=== PATIENT | female | born 1990 | race Caucasian/White ===

== ENCOUNTER 2020-12-20 14:03 | Emergency (ER) | payer BC ==
[~2020-12-20] VITALS: Ht 165.1 cm; Wt 52.2 kg
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
--- NOTE | 2020-12-20 14:58 | NUR ---
THE PATIENT SEEN BY DR TOMPKINS.
--- NOTE | 2020-12-20 15:25 | NUR ---
URINE SENT TO LAB
[2020-12-20 15:29] LABS: BASOPHILS % (AUTO) 0.5 % (0.0-2.0); EOSINOPHILS % (AUTO) 0.8 % (0.0-6.0); HEMATOCRIT 35 % (33-45); HEMOGLOBIN 11.6 g/dL (11.5-14.8); LYMPHOCYTES # (AUTO) 1.3 /CMM (0.8-4.8); LYMPHOCYTES % (AUTO) 25.1 % (20.0-44.0); MEAN CORPUSCULAR HGB CONC 33 g/dl (31.0-36.0); MEAN CORPUSCULAR VOLUME 91 fL (82-100); MONOCYTES # (AUTO) 0.4 /CMM (0.1-1.30); MONOCYTES % (AUTO) 6.8 % (2.0-12.0); NEUTROPHILS # (AUTO) 3.5 /CMM (1.8-8.9); NEUTROPHILS % (AUTO) 66.8 % (43.0-81.0); PLATELET COUNT (AUTO) 330 /CMM (150-450); RED BLOOD CELL COUNT(AUTO) 3.84 MIL/uL (4.0-5.2); WHITE BLOOD COUNT (AUTO) 5.2 K/uL (4.3-11.0)
[2020-12-20 15:32] LABS: BILIRUBIN,URINE NEGATIVE (NEGATIVE); COLOR,URINE YELLOW (YELLOW); LEUKOCYTE ESTERASE ,URINE NEGATIVE (NEGATIVE); NITRITE, URINE NEGATIVE (NEGATIVE); PH,URINE 6.5 (5.0-8.0); PROTEIN,URINE NEGATIVE (NEGATIVE); UGLUCOSE NEGATIVE (NEGATIVE); UROBILINOGEN,URINE 0.2 EU/dL (0.2)
[2020-12-20 15:44] LABS: ALBUMIN 4.2 g/dL (3.4-5.0); BILIRUBIN,DIRECT 0.2 mg/dL (0.0-0.2); CALCIUM, SERUM 8.8 mg/dL (8.5-10.1); CREATININE 0.7 mg/dL (0.6-1.3); POTASSIUM 3.8 mmol/L (3.5-5.1); TOTAL PROTEIN, SERUM 7.7 g/dL (6.4-8.2)
[2020-12-20] MEDS ORDERED: IV NS 0.9% 250 ML IV ONE (15:49)
[2020-12-20] MEDS ORDERED: CT SWABBABLE VALVE TRANS SET 1 EA INFUS.SET MC ONE (15:49)
[2020-12-20] MEDS ORDERED: IOHEXOL-300 100 ML VIAL IV ONE (15:49)
[2020-12-20] MEDS ORDERED: DICL50TA7 PO (17:31)
--- NOTE | 2020-12-20 18:16 | NUR ---
Patient discharged to home in stable condition. Written and verbal after care instructions given. Patient verbalizes understanding of instruction.
[2020-12-20 18:17] VITALS: BP 115/82
== END 2020-12-20 18:17 | disposition home or self-care (01) ==
LOC: ER 14:08
DX: S70.11XA Contusion of right thigh, initial encounter (principal); M25.552 Pain in left hip; M25.551 Pain in right hip; R10.32 Left lower quadrant pain; F90.9 Attention-deficit hyperactivity disorder, unspecified type; F41.9 Anxiety disorder, unspecified; F17.200 Nicotine dependence, unspecified, uncomplicated; V98.3XXA Accident to, on or involving ski lift, initial encounter; Y93.89 Activity, other specified; Y92.89 Other specified places as the place of occurrence of the external cause; Y99.8 Other external cause status
CPT/HCPCS: 36415; 74177; 80048; 80076; 81003; 83690; 84703; 85025; 99285; J7050; Q9967